=== PATIENT | male | born 1960 | race Caucasian/White ===

== ENCOUNTER 2019-11-22 11:24 | Observation (INO) ==
[2019-11-22] MEDS ORDERED: NS 1000 ML 1,000 ML IV ONE ×3 (12:21→16:49)
[2019-11-22] MEDS ORDERED: HumuLIN R SC PRN (12:29)
[2019-11-22 13:11] LABS: BASOPHILS # (AUTO) 0.1 X10^3/uL (0.0-0.1); BASOPHILS % (AUTO) 0.3 % (0.2-1.0); HEMATOCRIT 36.5 % (42.0-54.0); LYMPHOCYTES % (AUTO) 6.2 % (21.0-51.0); MEAN CORPUSCULAR HEMOGLOBIN 29.8 pg (27.0-34.0); MEAN CORPUSCULAR VOLUME 90.4 fL (80.0-100.0); MEAN PLATELET VOLUME 7.4 fL (7.4-11.0); MONOCYTES % (AUTO) 6.2 % (0.0-13.0); NEUTROPHILS # (AUTO) 14.5 x10^3/uL (2.2-4.8); NEUTROPHILS % (AUTO) 87.3 % (42.0-75.0); PLATELET COUNT 312 X10^3/uL (150.0-450.0); RED BLOOD COUNT 4.04 X10^6/uL (4.7-6.0); RED CELL DISTRIBUTION WIDTH 14.8 % (11.6-16.5); WHITE BLOOD COUNT 16.6 X10^3/uL (3.6-10.0)
[2019-11-22] MEDS: CIPRO TAB 500 MG PO SCH ×2 (13:14→20:26)
[2019-11-22 13:18] LABS: ALBUMIN 2.6 g/dL (3.4-5.0); CALCIUM 9.2 mg/dL (8.5-10.1); COR CA(FOR HYPOALB) 10.3 mg/dL (8.5-10.1); CREATININE 1.7 mg/dL (0.70-1.30); TOTAL PROTEIN 8.4 g/dL (6.4-8.2)
[2019-11-22 13:21] LABS: CARBON DIOXIDE 13.3 mmol/L (21-32)
[2019-11-22] MEDS ORDERED: PHENERGAN TAB 25 MG PO PRN (14:00)
[2019-11-22] MEDS: HumuLIN R SC PRN ×2 (17:22→20:26)
[2019-11-22] MEDS ORDERED: COREG TAB 12.5 MG PO ONE (17:44)
[2019-11-22] MEDS: COREG TAB 12.5 MG PO SCH ×2 (17:45→22:13)
[2019-11-22] MEDS: NS 1000 ML 1,000 ML IV SCH ×2 (18:14→23:58)
[2019-11-22] MEDS: SNACK - Diabetic Appropriate PO SCH (20:26)
[2019-11-22] MEDS: TYLENOL 325 MG TAB PO PRN (20:28)
[2019-11-23 05:01] LABS: ALANINE AMINOTRANSFERASE 11 Units/L (12-78); ALKALINE PHOSPHATASE 91 Units/L (46-116); ASPARTATE AMINO TRANSFERASE 12 Units/L (15-37); BLOOD UREA NITROGEN 13 mg/dL (7-18); CALCIUM 8.2 mg/dL (8.5-10.1); CARBON DIOXIDE 18.5 mmol/L (21-32); CHLORIDE 103 mmol/L (98-107); COR CA(FOR HYPOALB) 9.8 mg/dL (8.5-10.1); COR NA(FOR HYPERGLY) 140 mmol/L (136-145); CREATININE 1.51 mg/dL (0.70-1.30); SODIUM 138 mmol/L (136-145); eGFR NON BLACK RACES 50 (>60)
[2019-11-23 05:04] LABS: BASOPHILS # (AUTO) 0.1 X10^3/uL (0.0-0.1); BASOPHILS % (AUTO) 0.4 % (0.2-1.0); EOSINOPHILS % (AUTO) 0.1 % (0.9-2.9); HEMATOCRIT 30.4 % (42.0-54.0); HEMOGLOBIN 10.2 g/dL (13.5-18.0); LYMPHOCYTES # (AUTO) 0.9 X10^3/uL (1.3-2.9); LYMPHOCYTES % (AUTO) 5.9 % (21.0-51.0); MEAN CORPUSCULAR HEMOGLOBIN 29.7 pg (27.0-34.0); MEAN CORPUSCULAR HGB CONC 33.4 g/dL (33.0-35.0); MEAN PLATELET VOLUME 7.4 fL (7.4-11.0); MONOCYTES # (AUTO) 1.1 x10^3/uL (0.3-0.8); MONOCYTES % (AUTO) 6.6 % (0.0-13.0); NEUTROPHILS # (AUTO) 13.8 x10^3/uL (2.2-4.8); PLATELET COUNT 264 X10^3/uL (150.0-450.0); RED BLOOD COUNT 3.42 X10^6/uL (4.7-6.0); RED CELL DISTRIBUTION WIDTH 14.6 % (11.6-16.5); WHITE BLOOD COUNT 15.9 X10^3/uL (3.6-10.0)
[2019-11-23] MEDS: NS 1000 ML 1,000 ML IV SCH ×2 (05:49→13:55)
[2019-11-23] MEDS: COREG TAB 12.5 MG PO SCH ×2 (08:22→20:46)
[2019-11-23] MEDS: CIPRO TAB 500 MG PO SCH ×2 (08:22→20:46)
[2019-11-23 10:42] VITALS: BMI 25.0
[2019-11-23] MEDS: HumuLIN R SC PRN ×3 (11:27→20:47)
[2019-11-23] MEDS: TYLENOL 325 MG TAB PO PRN (19:51)
[2019-11-23] MEDS: SNACK - Diabetic Appropriate PO SCH (20:48)
[2019-11-24] MEDS: NS 1000 ML 1,000 ML IV SCH ×6 (00:26→21:55)
[2019-11-24 05:54] LABS: BASOPHILS % (AUTO) 0.4 % (0.2-1.0); EOSINOPHILS % (AUTO) 0.3 % (0.9-2.9); HEMATOCRIT 29.9 % (42.0-54.0); HEMOGLOBIN 10.3 g/dL (13.5-18.0); LYMPHOCYTES # (AUTO) 0.9 X10^3/uL (1.3-2.9); MEAN CORPUSCULAR HEMOGLOBIN 30.2 pg (27.0-34.0); MEAN CORPUSCULAR HGB CONC 34.4 g/dL (33.0-35.0); MEAN CORPUSCULAR VOLUME 87.9 fL (80.0-100.0); MEAN PLATELET VOLUME 7.6 fL (7.4-11.0); MONOCYTES # (AUTO) 0.7 x10^3/uL (0.3-0.8); MONOCYTES % (AUTO) 6.6 % (0.0-13.0); NEUTROPHILS # (AUTO) 8.3 x10^3/uL (2.2-4.8); NEUTROPHILS % (AUTO) 83.7 % (42.0-75.0); PLATELET COUNT 249 X10^3/uL (150.0-450.0); RED BLOOD COUNT 3.41 X10^6/uL (4.7-6.0); RED CELL DISTRIBUTION WIDTH 15.2 % (11.6-16.5); WHITE BLOOD COUNT 9.9 X10^3/uL (3.6-10.0)
[2019-11-24] MEDS: HumuLIN R SC PRN ×4 (06:01→21:56)
[2019-11-24 06:08] LABS: ALANINE AMINOTRANSFERASE 11 Units/L (12-78); ALBUMIN 1.8 g/dL (3.4-5.0); ALKALINE PHOSPHATASE 91 Units/L (46-116); ASPARTATE AMINO TRANSFERASE 12 Units/L (15-37); BLOOD UREA NITROGEN 13 mg/dL (7-18); CALCIUM 8.3 mg/dL (8.5-10.1); CARBON DIOXIDE 21.4 mmol/L (21-32); CHLORIDE 103 mmol/L (98-107); COR CA(FOR HYPOALB) 10.1 mg/dL (8.5-10.1); COR NA(FOR HYPERGLY) 137 mmol/L (136-145); CREATININE 1.33 mg/dL (0.70-1.30); SODIUM 136 mmol/L (136-145); TOTAL PROTEIN 6.9 g/dL (6.4-8.2); eGFR NON BLACK RACES 58 (>60)
[2019-11-24] MEDS: ACTOS PO SCH (08:32)
[2019-11-24] MEDS: COREG TAB 12.5 MG PO SCH ×2 (08:32→21:55)
[2019-11-24] MEDS: GLUCOPHAGE XR 24-HR PO SCH ×2 (08:32→21:54)
[2019-11-24] MEDS: CIPRO TAB 500 MG PO SCH ×2 (08:33→21:55)
[2019-11-24] MEDS ORDERED: VSL#3 PO ONE (08:35)
[2019-11-24] MEDS: VSL#3 PO SCH (08:45)
[2019-11-24] MEDS ORDERED: K-DUR TAB 20 MEQ PO ONE (17:40)
[2019-11-24] MEDS ORDERED: K-DUR TAB 20 MEQ PO SCH (18:00)
[2019-11-24] MEDS: SNACK - Diabetic Appropriate PO SCH (21:54)
[2019-11-24] MEDS: TYLENOL 325 MG TAB PO PRN (21:57)
[2019-11-25] MEDS: NS 1000 ML 1,000 ML IV SCH ×5 (01:46→21:16)
[2019-11-25] MEDS: HumuLIN R SC PRN ×4 (05:51→21:00)
[2019-11-25 06:13] LABS: BASOPHILS % (AUTO) 0.3 % (0.2-1.0); EOSINOPHILS % (AUTO) 0.5 % (0.9-2.9); HEMATOCRIT 28.1 % (42.0-54.0); HEMOGLOBIN 9.5 g/dL (13.5-18.0); LYMPHOCYTES # (AUTO) 0.8 X10^3/uL (1.3-2.9); LYMPHOCYTES % (AUTO) 11.1 % (21.0-51.0); MEAN CORPUSCULAR HEMOGLOBIN 30.2 pg (27.0-34.0); MEAN PLATELET VOLUME 7.9 fL (7.4-11.0); MONOCYTES # (AUTO) 0.5 x10^3/uL (0.3-0.8); MONOCYTES % (AUTO) 7.2 % (0.0-13.0); NEUTROPHILS # (AUTO) 5.6 x10^3/uL (2.2-4.8); NEUTROPHILS % (AUTO) 80.9 % (42.0-75.0); PLATELET COUNT 212 X10^3/uL (150.0-450.0); RED BLOOD COUNT 3.15 X10^6/uL (4.7-6.0); RED CELL DISTRIBUTION WIDTH 15.1 % (11.6-16.5); WHITE BLOOD COUNT 6.9 X10^3/uL (3.6-10.0)
[2019-11-25 06:25] LABS: ALANINE AMINOTRANSFERASE 13 Units/L (12-78); ALBUMIN 1.6 g/dL (3.4-5.0); ALKALINE PHOSPHATASE 86 Units/L (46-116); ASPARTATE AMINO TRANSFERASE 12 Units/L (15-37); BLOOD UREA NITROGEN 12 mg/dL (7-18); CALCIUM 7.8 mg/dL (8.5-10.1); CARBON DIOXIDE 19.8 mmol/L (21-32); CHLORIDE 104 mmol/L (98-107); COR CA(FOR HYPOALB) 9.7 mg/dL (8.5-10.1); COR NA(FOR HYPERGLY) 139 mmol/L (136-145); CREATININE 1.15 mg/dL (0.70-1.30); SODIUM 136 mmol/L (136-145); TOTAL PROTEIN 6.1 g/dL (6.4-8.2); eGFR NON BLACK RACES > 60 (>60)
[2019-11-25] MEDS: MAGNESIUM SULFATE 1 GRAM/100 mL PREMIX 4 G/400 ML BAG IV SCH ×4 (07:45→11:28)
[2019-11-25] MEDS: VSL#3 PO SCH (08:37)
[2019-11-25] MEDS: CIPRO TAB 500 MG PO SCH ×2 (08:37→20:02)
[2019-11-25] MEDS: ACTOS PO SCH (08:38)
[2019-11-25] MEDS: GLUCOPHAGE XR 24-HR PO SCH ×2 (08:38→20:03)
[2019-11-25] MEDS: COREG TAB 12.5 MG PO SCH ×2 (08:38→20:02)
[2019-11-25] MEDS: K-DUR TAB 20 MEQ PO SCH ×2 (08:38→20:03)
[2019-11-25] MEDS: SNACK - Diabetic Appropriate PO SCH (20:01)
[2019-11-26] MEDS: NS 1000 ML 1,000 ML IV SCH (05:29)
[2019-11-26] MEDS: HumuLIN R SC PRN (05:31)
[2019-11-26] MEDS: CIPRO TAB 500 MG PO SCH (10:00)
[2019-11-26] MEDS: ACTOS PO SCH (10:00)
[2019-11-26] MEDS: COREG TAB 12.5 MG PO SCH (10:01)
[2019-11-26] MEDS: VSL#3 PO SCH (10:01)
[2019-11-26] MEDS: K-DUR TAB 20 MEQ PO SCH (10:01)
[2019-11-26] MEDS: GLUCOPHAGE XR 24-HR PO SCH (10:01)
[2019-11-26] MEDS ORDERED: NORVASC TAB 5 MG PO SCH (13:00)
[2019-11-26] MEDS ORDERED: COZAAR PO SCH (13:00)
[2019-11-26 13:11] LABS: BASOPHILS % (AUTO) 0.6 % (0.2-1.0); EOSINOPHILS % (AUTO) 0.5 % (0.9-2.9); HEMATOCRIT 28.3 % (42.0-54.0); HEMOGLOBIN 9.7 g/dL (13.5-18.0); LYMPHOCYTES # (AUTO) 1.1 X10^3/uL (1.3-2.9); LYMPHOCYTES % (AUTO) 17.2 % (21.0-51.0); MEAN CORPUSCULAR HEMOGLOBIN 30.1 pg (27.0-34.0); MEAN CORPUSCULAR HGB CONC 34.2 g/dL (33.0-35.0); MEAN CORPUSCULAR VOLUME 87.9 fL (80.0-100.0); MEAN PLATELET VOLUME 7.3 fL (7.4-11.0); MONOCYTES # (AUTO) 0.6 x10^3/uL (0.3-0.8); MONOCYTES % (AUTO) 10.2 % (0.0-13.0); NEUTROPHILS # (AUTO) 4.5 x10^3/uL (2.2-4.8); NEUTROPHILS % (AUTO) 71.5 % (42.0-75.0); PLATELET COUNT 225 X10^3/uL (150.0-450.0); RED BLOOD COUNT 3.22 X10^6/uL (4.7-6.0); RED CELL DISTRIBUTION WIDTH 15.3 % (11.6-16.5); WHITE BLOOD COUNT 6.3 X10^3/uL (3.6-10.0)
[2019-11-26 13:25] LABS: ALANINE AMINOTRANSFERASE 10 Units/L (12-78); ALBUMIN 1.7 g/dL (3.4-5.0); ALKALINE PHOSPHATASE 91 Units/L (46-116); ASPARTATE AMINO TRANSFERASE 11 Units/L (15-37); BLOOD UREA NITROGEN 10 mg/dL (7-18); CHLORIDE 105 mmol/L (98-107); COR CA(FOR HYPOALB) 9.8 mg/dL (8.5-10.1); COR NA(FOR HYPERGLY) 141 mmol/L (136-145); CREATININE 1.15 mg/dL (0.70-1.30); SODIUM 138 mmol/L (136-145); TOTAL PROTEIN 6.3 g/dL (6.4-8.2); eGFR NON BLACK RACES > 60 (>60)
[2019-11-26 15:41] VITALS: BP 156/90
== END 2019-11-26 15:05 | disposition home or self-care (01) ==
LOC: MED/SURG
PROVIDERS: ADMIT Obstetrics & Gynecology Obstetrics; ATTEND Obstetrics & Gynecology Obstetrics
DX: E87.6 Hypokalemia; E86.0 Dehydration; R11.2 Nausea with vomiting, unspecified; I10 Essential (primary) hypertension; R53.1 Weakness; E11.65 Type 2 diabetes mellitus with hyperglycemia; B02.8 Zoster with other complications; B96.23 Unspecified Shiga toxin-producing Escherichia coli [E. coli] [STEC] as the cause of diseases classified elsewhere